=== PATIENT | male | born 1970 | race Caucasian/White ===

== ENCOUNTER 2018-08-21 13:46 | Inpatient (IN) | payer BC ==
--- NOTE | 2018-08-21 14:06 | PDOC ---
Attending Attestation - Resident Resident Name: Santos Griffith - HPI HPI: 08/21/18 15:56 Pt presents to the ED complaining of a 4 day history of fever, generalized myalgias and productive cough. Also complaining of nausea and vomiting that has since resolved. Presented today because he had a fever of 104 at home. Took tylenol immediately prior to arrival. - Physicial Exam PE: 08/21/18 15:59 Agree with resident exam. Patient is alert and oriented but appears uncomfortable. Lungs are clear b/l. Abdomen is soft, non tender and non distended. No CVA tenderness. Muccous membranes are dry. - Medical Decision Making 08/21/18 16:08 Pt presents to the ED with fever and myalgias. Found to be neutropenic with ANC of 200 on labs. Given his fevers at home, will start broad spectrum antibiotics and admit for neutropenic fever. Will place in isolation. Will admit to medicine for neutropenic fever. PAtient is positive for influenza A. Will start tamiflu given the severity of his illness. 08/21/18 16:08 08/21/18 16:10
--- NOTE | 2018-08-21 14:22 | PDOC ---
History of Present Illness - General Chief Complaint: Shortness of Breath Stated Complaint: FEVER,DIFF. BREATHNG Time Seen by Provider: 08/21/18 14:06 History Source: Patient, Spouse ( present at bedside) Exam Limitations: No Limitations - History of Present Illness Initial Comments: HPI: 47 y/o male presenting to [facility] ER complaining of fever, nausea, vomiting, diarrhea, cough, and generalized body aches. Pt states his symptoms started last week with a cough then progressed to fever, vomiting, and body aches last Tuesday (08/19/2018). Small episode of watery diarrhea this morning. Denies observing blood in either emesis or stool. Unable to tolerate PO; last meal on Tuesday. Cough has been productive of green sputum without color change. Pt denies SOB but reports observing fast and labored breathing. Pt refused to take any medication until two hours prior to arrival in the department when he took Tylenol cold and flu. Tmax this morning was 104 orally. Coworker had similar symptoms on Tuesday and two year old child has been coughing since last week with known sick contacts at daycare. Pt did not receive his flu shot this year. PCP: Dr. Leticia Stanley Hx: - Tobacco: none smoker Medical Hx: - Mitral Valve replacement with bovine valve, 2008 at [facility]. 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 Does not take anticoagulants. Past History - Past Medical History Allergies/Adverse Reactions: Allergies Allergy/AdvReac Type Severity Reaction Status Date / Time No Known Allergies Allergy Verified 08/21/18 13:52 Home Medications: Ambulatory Orders Topiramate 50 mg PO ASDIR 08/21/18 COPD: No - Surgical History Cardiac Surgery: Yes (mvp surgery 10 years ago) - Suicide/Smoking/Psychosocial Hx Smoking History: Never smoked Review of Systems - Review of Systems Able to Perform ROS?: Yes Comments:: In addition to that documented in the HPI above, the additional ROS was obtained : Constitutional: Endorses fevers and chills. Denies syncope. Eyes: Denies vision changes ENMT: Denies sore throat CV: Denies chest pain Resp: Denies SOB GI: Endorses vomiting and diarrhea : Denies painful urination MSK: Denies recent trauma Skin: Denies new rashes Neuro: Denies new numbness or tingling or weakness Endocrine: Denies polyuria Heme: Denies bleeding or bruising *Physical Exam - Vital Signs Last Vital Signs Temp Pulse Resp BP Pulse Ox 99.4 F 122 H 20 116/74 92 L 08/21/18 13:48 08/21/18 13:48 08/21/18 13:48 08/21/18 13:48 08/21/18 13:48 - Physical Exam Comments: Constitutional: Well-developed, well-nourished, nontoxic male in no acute distress but obvious discomfort. Found semi-fowlers on hospital bed. Alert and oriented x4. Answered all questions appropriately and completely. Speech was non -labored, non-pressured. Head: Normocephalic. No obvious external signs of trauma. Eyes: Sclerae white. Conjunctiva moist and not injected. EARS: Hearing grossly intact. NOSE: No nasal discharge. THROAT: Oral cavity and pharynx normal. No inflammation, swelling, exudate, or lesions. Teeth and gingiva in good general condition. Oral mucosa moist. Neck: Supple, trachea is midline. Cardiovascular: Tachycardic rate and regular rhythm. No murmur, rubs, clicks, or gallops. Peripheral pulses: Radial pulses full. Respiratory: Breathing unlabored but tachypneic at rest. Equal chest rise and fall. Clear to auscultation bilaterally. No stridor, no wheezing, no rhonchi. Gastrointestinal: abdomen is soft, non-tender, non-distended. Neuro: Alert and oriented. Moving all four extremities spontaneously. Skin: Warm, dry, and intact. No bruising, rashes, or other lesions. Psych: Affect: appropriate. Mood: normal. Moderate Sedation - Procedure Monitoring Vital Signs: Procedure Monitoring Vital Signs Temperature 99.4 F 08/21/18 13:48 Pulse Rate 122 H 08/21/18 13:48 Respiratory Rate 20 08/21/18 13:48 Blood Pressure 116/74 08/21/18 13:48 O2 Sat by Pulse Oximetry (%) 92 L 08/21/18 13:48 ED Treatment Course - LABORATORY CBC & Chemistry Diagram: 08/22/18 06:00 08/22/18 06:00 Medical Decision Making - Medical Decision Making *Reviewed vital signs, nursing notes, and prior visit documentation (if available). 47 y/o male presenting with flu like symptoms with known sick contacts. H/o mitral valve replacement. Afebrile on arrival but endorses antipyretic two hours prior to presenting. Triage vitals remarkable for tachycardia and mild hypoxia. Suspect likely viral/influenza infection over pneumonia but given high fever and vital sign abnormalities will obtain CXR, CBC, and CMP. Ordered ondansetron for nausea/vomiting and D5W IVFB given decreased PO intake. CBC revealed profound neutropenia. Pt denies h/o of cancer, chemotherapy, or HIV infection. Reports he is in a monogamous relationship with . 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 Pt verbally consented to HIV testing. Lab will send for Western Blot confirmatory test regardless of rapid Ag/Ab test given duration of time since incident. Additionally, ordered blood and urine cultures. Initiated Zosyn antibiotic therapy at pseudomonas dosing for broad spectrum coverage for neutropenic fever. No h/o of MRSA; will not start vancomycin. Initial lactate not elevated. Rapid influenza A positive. Started Oseltamivir given neutropenic status. CXR unremarkable for acute cardiopulmonary process per ED wet read. Radiology report pending. CMP revealed elevated BUN/Cr. Concern for NORTH secondary to dehydration given clinical course even though BCR is less than 20. Will add second IVFB then start pt on maintenance gtts. EKG: Sinus tachycardia with a ventricular rate of 106 bpm. Normal axis. Normal intervals. No ST segment elevation or depression. No hyperacute T waves. No pathologic Q waves. 16:07 Telephone page sent for [facility] physician covering for Dr. Kelly. Awaiting call back. 16:[address] Berry of [facility]. Verbally appraised of the pts HPI, ED course, and current plan of management. Agrees to admit for neutropenic fever and influenza A. HIV, blood culture, and urine cultures pending. Pt febrile. Ordered Tylenol. *DC/Admit/Observation/Transfer Diagnosis at time of Disposition: Neutropenic fever, Influenza A - Discharge Dispostion Condition at time of disposition: Stable Decision to Admit order: Yes - Referrals - Patient Instructions - Post Discharge Activity
[2018-08-21] MEDS ORDERED: DEXTROSE 5%-WATER 500 ML PVC-FREE INFUS.BAG IV ONE (14:23)
[2018-08-21] MEDS ORDERED: KETOROLAC TROMETHAMINE 30 MG/1 ML VIAL IVPUSH ONE (14:23)
[2018-08-21] MEDS ORDERED: KETOROLAC TROMETHAMINE 30 MG/1 ML VIAL ONE (14:30)
[2018-08-21] MEDS ORDERED: DEXTROSE 5%-WATER - 1,000 ML IV ONE (14:45)
[2018-08-21 15:02] LABS: BASO % 0.1 % (0-2.0); EOS % 0.1 % (0-4.5); HEMATOCRIT 45.9 % (35.4-49); HEMOGLOBIN 15.2 GM/dL (11.7-16.9); LYMPH % 55.2 % (8-40); MCH 29.8 pg (25.7-33.7); MCHC 33.1 g/dl (32.0-35.9); MEAN PLT VOLUME 9.5 fl (7.5-11.1); MONO % 32.6 % (3.8-10.2); PLATELET COUNT 120 K/MM3 (134-434); RDW 12.9 % (11.9-15.9)
[2018-08-21 15:09] LABS: WHITE BLOOD COUNT 1.7 K/mm3 (4.0-10.0)
[2018-08-21 15:29] LABS: ALBUMIN 3.6 g/dl (3.4-5.0); ALK PHOS 48 U/L (45-117); ANION GAP 9 MMOL/L (8-16); BILIRUBIN,TOTAL 0.8 mg/dL (0.2-1); BLOOD UREA NITROGEN 21 mg/dL (7-18); CALCIUM 8.3 mg/dL (8.5-10.1); CHLORIDE 106 mmol/L (98-107); CO2 22 mmol/L (21-32); CREATININE 1.4 mg/dL (0.55-1.3); GLUCOSE,RANDOM 118 mg/dL (74-106); POTASSIUM 3.9 mmol/L (3.5-5.1); SGOT/AST 27 U/L (15-37); SGPT/ALT 41 U/L (13-61); SODIUM 137 mmol/L (136-145); TOT PROT 7.2 g/dl (6.4-8.2)
[2018-08-21] MEDS ORDERED: PIPERACILLIN/TAZOB 4.5 GM 4.5 GM in DEXTROSE 5%-WATER 100 ML IVPB ONE (15:35)
[2018-08-21 15:55] LABS: VENOUS PC02 28.1 mmHg (38-52); VENOUS PH 7.47 (7.32-7.42); VENOUS PO2 56.4 mmHg (28-48)
[2018-08-21] MEDS ORDERED: PIPERACILLIN/TAZOB 4.5 GM 4.5 GM/100 ML BAG IVPB ONE (15:55)
[2018-08-21] MEDS ORDERED: OSELTAMIVIR PHOSPHATE 75 MG CAPSULE PO ONE (15:58)
[2018-08-21] MEDS ORDERED: OSELTAMIVIR PHOSPHATE 75 MG CAPSULE ONE (16:04)
[2018-08-21] MEDS ORDERED: SODIUM CHLORIDE 0.9% 500 ML INFUS.BAG IV ONE (16:22)
--- NOTE | 2018-08-21 16:29 | HP ---
CHIEF COMPLAINT: Fever and body aches PCP: Dr. Kelly HISTORY OF PRESENT ILLNESS: 47 year-old male with a PMH significant for migraines and tissue mitral valve replacement, presesnted to the ED today complaining of fever, nausea, vomiting, diarrhea, cough, and generalized body aches. Pt states his symptoms started last week with a cough then progressed to fever, vomiting, and body aches last Tuesday (08/19/2018). Small episode of watery diarrhea this morning. Unable to tolerate PO; last meal on Tuesday. Cough has been productive of green sputum. Tmax this morning was 104 orally at home. Coworker had similar symptoms. Did not receive his flu shot this year. ER course was notable for: (1) T100.5, p110 (2) Influenza A (+) Recent Travel: No PAST MEDICAL HISTORY: Migraines PAST SURGICAL HISTORY: Tissue mitral valve replacement Social History: Smoking: no Alcohol: no Drugs: no Family History: Allergies No Known Allergies Allergy (Verified 08/21/18 13:52) HOME MEDICATIONS: Home Medications Medication Instructions Recorded Topiramate 50 mg PO ASDIR 08/21/18 REVIEW OF SYSTEMS CONSTITUTIONAL: +fever, weakness, malaise, body aches, loss of appetite Absent: chills, diaphoresis, weight change HEENT: Absent: rhinorrhea, nasal congestion, throat pain, throat swelling, difficulty swallowing, mouth swelling, ear pain, eye pain, visual changes CARDIOVASCULAR: Absent: chest pain, syncope, palpitations, irregular heart rate, lightheadedness , peripheral edema RESPIRATORY: Absent: cough, shortness of breath, dyspnea with exertion, orthopnea, wheezing, stridor, hemoptysis GASTROINTESTINAL: Absent: abdominal pain, abdominal distension, nausea, vomiting, diarrhea, constipation, melena, hematochezia GENITOURINARY: Absent: dysuria, frequency, urgency, hesitancy, hematuria, flank pain, genital pain MUSCULOSKELETAL: Absent: myalgia, arthralgia, joint swelling, back pain, neck pain SKIN: Absent: rash, itching, pallor HEMATOLOGIC/IMMUNOLOGIC: Absent: easy bleeding, easy bruising, lymphadenopathy, frequent infections ENDOCRINE: Absent: unexplained weight gain, unexplained weight loss, heat intolerance, cold intolerance NEUROLOGIC: Absent: headache, focal weakness or paresthesias, dizziness, unsteady gait, seizure, mental status changes, bladder or bowel incontinence PSYCHIATRIC: Absent: anxiety, depression, suicidal or homicidal ideation, hallucinations. PHYSICAL EXAMINATION Vital Signs - 24 hr 08/21/18 08/21/18 08/21/18 13:48 15:14 16:28 Temperature 99.4 F 100.5 F H Pulse Rate 122 H Pulse Rate [ 110 H Apical] Respiratory 20 20 Rate Blood Pressure 116/74 Blood Pressure 105/77 [Left Arm] O2 Sat by Pulse 92 L 94 L Oximetry (%) GENERAL: A&O x 3; lethargic; ill-appearing HEAD: Normal with no signs of trauma. EYES: Pupils equal, round and reactive to light, sclera anicteric, conjunctiva clear. No lid lag. EARS, NOSE, THROAT: Dry mucous membranes. LUNGS: Breath sounds equal, clear to auscultation bilaterally. No wheezes, and no crackles. No accessory muscle use. HEART: Regular rate and rhythm, normal S1 and S2 ABDOMEN: Soft, nontender, not distended, normoactive bowel sounds, no guarding, no rebound UPPER EXTREMITIES: 2+ pulses, warm, well-perfused. No cyanosis. No clubbing. No peripheral edema. LOWER EXTREMITIES: 2+ pulses, warm, well-perfused. No calf tenderness. No peripheral edema. NEUROLOGICAL: Cranial nerves II-XII intact. Normal speech. SKIN: Warm, dry, normal turgor Laboratory Results - last 24 hr 08/21/18 08/21/18 08/21/18 14:40 14:40 15:13 WBC 1.7 L* RBC 5.10 Hgb 15.2 Hct 45.9 MCV 90.0 MCH 29.8 MCHC 33.1 RDW 12.9 Plt Count 120 L MPV 9.5 Absolute Neuts (auto) 0.2 L Neutrophils % 12.0 L Lymphocytes % 55.2 H Monocytes % 32.6 H Eosinophils % 0.1 Basophils % 0.1 Nucleated RBC % 0 VBG pH POC VBG pCO2 POC VBG pO2 Mixed VBG HCO3 Sodium 137 Potassium 3.9 Chloride 106 Carbon Dioxide 22 Anion Gap 9 BUN 21 H Creatinine 1.4 H Creat Clearance w eGFR 54.80 Random Glucose 118 H Lactic Acid Calcium 8.3 L Total Bilirubin 0.8 AST 27 ALT 41 Alkaline Phosphatase 48 Total Protein 7.2 Albumin 3.6 Influenza A (Rapid) Positive Influenza B (Rapid) Negative 08/21/18 08/21/18 15:45 15:48 WBC RBC Hgb Hct MCV MCH MCHC RDW Plt Count MPV Absolute Neuts (auto) Neutrophils % Lymphocytes % Monocytes % Eosinophils % Basophils % Nucleated RBC % VBG pH 7.47 H POC VBG pCO2 28.1 L POC VBG pO2 56.4 H Mixed VBG HCO3 19.9 Sodium Potassium Chloride Carbon Dioxide Anion Gap BUN Creatinine Creat Clearance w eGFR Random Glucose Lactic Acid 1.2 Calcium Total Bilirubin AST ALT Alkaline Phosphatase Total Protein Albumin Influenza A (Rapid) Influenza B (Rapid) ASSESSMENT/PLAN: 47 year-old male with a PMH significant for mitral valve repair. Admitted for Influenza A and fever. Influenza A Fever --positive Influenza A --neutropenia likely seconary to influenza --empiric Vanc and Zosyn started, ID consult requested --IV fluids --Tamiflu s/p tissue mitral valve repair --stable Migraines --continue topiromate FEN Fluids: NS@125mL/hr Electrolytes: repete as indicated Nutrition: regular diet DVT prophylaxis: Dispo: continues to require inpatient care. Full code. Visit type - Emergency Visit Emergency Visit: Yes ED Registration Date: 08/21/18 Care time: The patient presented to the Emergency Department on the above date and was hospitalized for further evaluation of their emergent condition. - New Patient This patient is new to me today: Yes Date on this admission: 08/21/18 - Critical Care Critical Care patient: No
[2018-08-21] MEDS ORDERED: PATIENT'S OWN MEDICATION (NON-FORMULARY) (Topiramate [Topiramate] 50 MG) PO SCH (16:30)
[2018-08-21] MEDS ORDERED: ACETAMINOPHEN 325 MG TABLET (FP) PO PRN (16:31)
[2018-08-21] MEDS ORDERED: ACETAMINOPHEN 1000 MG/100 ML VIAL (NON FORMULARY) IVPB ONE (17:01)
[2018-08-21] MEDS ORDERED: ACETAMINOPHEN INJECTION 100 ML IVPB ONE (17:08)
[2018-08-21] MEDS: SODIUM CHLORIDE 1,000 ML IV SCH (17:16)
[2018-08-21] MEDS ORDERED: MINERAL OIL ENEMA 133 ML ENEMA PR ONE (17:17)
[2018-08-21] MEDS ORDERED: VANCOMYCIN 1 GM PREMIX - 1 GM/200 ML BAG IVPB ONE (17:21)
[2018-08-21 17:35] LABS: URINE APPEARANCE CLOUDY; URINE BILIRUBIN NEGATIVE (<2.0 mg/dL); URINE COLOR YELLOW; URINE GLUCOSE (UA) 2+ (NEGATIVE); URINE KETONE TRACE (NEGATIVE); URINE LEUK ESTERASE NEGATIVE (NEGATIVE); URINE NITRITE NEGATIVE (NEGATIVE); URINE PROTEIN 2+ (NEGATIVE); URINE UROBILINOGEN NEGATIVE mg/dL (0.2-1.0)
[2018-08-21 17:53] LABS: EPI CELLS RARE /HPF (FEW); URINE MUCUS RARE
[2018-08-21] MEDS ORDERED: VANCOMYCIN 1 GRAM (PRE-DOCKED) 1,000 MG/250 ML BAG IVPB ONE (18:31)
[2018-08-21 20:46] LABS: SMUDGE CELLS FEW
[2018-08-21 20:47] LABS: PLATELET ESTIMATE SLT DECREASE
[2018-08-21 23:02] VITALS: BMI 24.5
[2018-08-21] MEDS: OSELTAMIVIR PHOSPHATE 75 MG CAPSULE PO SCH (23:17)
[2018-08-22] MEDS ORDERED: PIPERACILLIN/TAZOBACTAM 3.375 GM VIAL IVPB ONE ×2 (01:08→09:04)
[2018-08-22] MEDS ORDERED: DEXTROSE 5%-WATER - 50 ML IVPB ONE ×2 (01:09→09:04)
[2018-08-22] MEDS: PIPERACILLIN/TAZOB 3.375 GM 3.375 GM in DEXTROSE 5%-WATER - 50 ML IVPB SCH ×3 (02:06→17:12)
[2018-08-22 06:12] LABS: BASO % 0.2 % (0-2.0); HEMATOCRIT 40.5 % (35.4-49); HEMOGLOBIN 13.4 GM/dL (11.7-16.9); LYMPH % 35.7 % (8-40); MCH 29.6 pg (25.7-33.7); MCHC 32.9 g/dl (32.0-35.9); MEAN CELL VOLUME 89.7 fl (80-96); MEAN PLT VOLUME 9.4 fl (7.5-11.1); MONO % 11.1 % (3.8-10.2); PLATELET COUNT 100 K/MM3 (134-434); RBC 4.52 M/mm3 (4.00-5.60); RDW 12.9 % (11.9-15.9); WHITE BLOOD COUNT 2.1 K/mm3 (4.0-10.0)
[2018-08-22 07:24] LABS: ALBUMIN 2.7 g/dl (3.4-5.0); ALK PHOS 30 U/L (45-117); ANION GAP 10 MMOL/L (8-16); BILIRUBIN,TOTAL 1.1 mg/dL (0.2-1); BLOOD UREA NITROGEN 15 mg/dL (7-18); CHLORIDE 109 mmol/L (98-107); CO2 19 mmol/L (21-32); CREATININE 1.1 mg/dL (0.55-1.3); GLUCOSE,RANDOM 129 mg/dL (74-106); MAGNESIUM 1.6 mg/dL (1.8-2.4); POTASSIUM 3.4 mmol/L (3.5-5.1); SGOT/AST 19 U/L (15-37); SGPT/ALT 28 U/L (13-61); SODIUM 138 mmol/L (136-145); TOT PROT 5.5 g/dl (6.4-8.2)
[2018-08-22] MEDS ORDERED: PT OWN MED DRAWER 7, Y5N ONE ×2 (09:03→20:43)
[2018-08-22] MEDS: OSELTAMIVIR PHOSPHATE 75 MG CAPSULE PO SCH ×2 (09:34→21:26)
[2018-08-22] MEDS: ENOXAPARIN NA (PORCINE) 40 MG/0.4 ML DISP.SYRIN SQ SCH (09:34)
--- NOTE | 2018-08-22 10:14 | PN ---
Physical Exam: SUBJECTIVE: Patient seen and examined OBJECTIVE: Vital Signs Period Temp Pulse Resp BP Sys/Josue Pulse Ox Last 24 Hr 97.9 F-100.5 F 62-122 18-20 105-131/70-77 92-98 GENERAL: A&O x 3; more alert but still ill-appearing LUNGS: Breath sounds equal, clear to auscultation bilaterally. No wheezes, and no crackles. No accessory muscle use. HEART: Regular rate and rhythm, S1 and S2 ABDOMEN: Soft, nontender, not distended, normoactive bowel sounds, no guarding, no rebound UPPER EXTREMITIES: 2+ pulses, warm, well-perfused. No cyanosis. No clubbing. No peripheral edema. LOWER EXTREMITIES: 2+ pulses, warm, well-perfused. No calf tenderness. No peripheral edema. NEUROLOGICAL: Cranial nerves II-XII intact. Normal speech. SKIN: Warm, dry, normal turgor Laboratory Results - last 24 hr 08/21/18 08/21/18 08/21/18 14:40 14:40 15:13 WBC 1.7 L* RBC 5.10 Hgb 15.2 Hct 45.9 MCV 90.0 MCH 29.8 MCHC 33.1 RDW 12.9 Plt Count 120 L MPV 9.5 Absolute Neuts (auto) 0.2 L Neutrophils % 12.0 L Neutrophils % (Manual) 10.0 L Lymphocytes % 55.2 H Lymphocytes % (Manual) 50.0 H Monocytes % 32.6 H Monocytes % (Manual) 26 H Eosinophils % 0.1 Basophils % 0.1 Nucleated RBC % 0 Smudge Cells Few Platelet Estimate Slt decrease Platelet Comment No clumping noted VBG pH POC VBG pCO2 POC VBG pO2 Mixed VBG HCO3 Sodium 137 Potassium 3.9 Chloride 106 Carbon Dioxide 22 Anion Gap 9 BUN 21 H Creatinine 1.4 H Creat Clearance w eGFR 54.80 Random Glucose 118 H Lactic Acid Calcium 8.3 L Magnesium Total Bilirubin 0.8 AST 27 ALT 41 Alkaline Phosphatase 48 Total Protein 7.2 Albumin 3.6 Urine Color Urine Appearance Urine pH Ur Specific [place] Urine Protein Urine Glucose (UA) Urine Ketones Urine Blood Urine Nitrite Urine Bilirubin Urine Urobilinogen Ur Leukocyte Esterase Urine WBC (Auto) Urine RBC (Auto) Ur Epithelial Cells Urine Mucus HIV 1&2 Antibody Screen HIV P24 Antigen Influenza A (Rapid) Positive Influenza B (Rapid) Negative 08/21/18 08/21/18 08/21/18 15:45 15:48 15:52 WBC RBC Hgb Hct MCV MCH MCHC RDW Plt Count MPV Absolute Neuts (auto) Neutrophils % Neutrophils % (Manual) Lymphocytes % Lymphocytes % (Manual) Monocytes % Monocytes % (Manual) Eosinophils % Basophils % Nucleated RBC % Smudge Cells Platelet Estimate Platelet Comment VBG pH 7.47 H POC VBG pCO2 28.1 L POC VBG pO2 56.4 H Mixed VBG HCO3 19.9 Sodium Potassium Chloride Carbon Dioxide Anion Gap BUN Creatinine Creat Clearance w eGFR Random Glucose Lactic Acid 1.2 Calcium Magnesium Total Bilirubin AST ALT Alkaline Phosphatase Total Protein Albumin Urine Color Urine Appearance Urine pH Ur Specific [place] Urine Protein Urine Glucose (UA) Urine Ketones Urine Blood Urine Nitrite Urine Bilirubin Urine Urobilinogen Ur Leukocyte Esterase Urine WBC (Auto) Urine RBC (Auto) Ur Epithelial Cells Urine Mucus HIV 1&2 Antibody Screen Negative HIV P24 Antigen Negative Influenza A (Rapid) Influenza B (Rapid) 08/21/18 08/22/18 08/22/18 17:30 06:00 06:00 WBC 2.1 L RBC 4.52 Hgb 13.4 Hct 40.5 MCV 89.7 MCH 29.6 MCHC 32.9 RDW 12.9 Plt Count 100 L MPV 9.4 Absolute Neuts (auto) 1.1 L Neutrophils % 53.0 D Neutrophils % (Manual) Lymphocytes % 35.7 D Lymphocytes % (Manual) Monocytes % 11.1 H Monocytes % (Manual) Eosinophils % 0.0 D Basophils % 0.2 Nucleated RBC % 0 Smudge Cells Platelet Estimate Platelet Comment VBG pH POC VBG pCO2 POC VBG pO2 Mixed VBG HCO3 Sodium 138 Potassium 3.4 L Chloride 109 H Carbon Dioxide 19 L Anion Gap 10 BUN 15 Creatinine 1.1 Creat Clearance w eGFR > 60 Random Glucose 129 H Lactic Acid Calcium 7.0 L Magnesium 1.6 L Total Bilirubin 1.1 H AST 19 ALT 28 Alkaline Phosphatase 30 L Total Protein 5.5 L Albumin 2.7 L Urine Color Yellow Urine Appearance Cloudy Urine pH 5.0 Ur Specific [place] 1.032 Urine Protein 2+ H Urine Glucose (UA) 2+ H Urine Ketones Trace H Urine Blood Negative Urine Nitrite Negative Urine Bilirubin Negative Urine Urobilinogen Negative Ur Leukocyte Esterase Negative Urine WBC (Auto) 2 Urine RBC (Auto) <1 Ur Epithelial Cells Rare Urine Mucus Rare HIV 1&2 Antibody Screen HIV P24 Antigen Influenza A (Rapid) Influenza B (Rapid) Active Medications Generic Name Dose Route Start Last Admin Trade Name Padmini PRN Reason Stop Dose Admin Acetaminophen 650 mg 08/21/18 16:31 Tylenol - PO Q6H PRN FEVER Enoxaparin Sodium 40 mg 08/22/18 10:00 08/22/18 09:34 Lovenox - SQ 40 mg DAILY EDVIN Administration Sodium Chloride 1,000 mls @ 125 mls/hr 08/21/18 16:30 08/21/18 17:16 Normal Saline - IV 125 mls/hr ASDIR EDVIN Administration Piperacillin Sod/Tazobactam 50 mls @ 100 mls/hr 08/21/18 18:00 Sod 3.375 gm/ Dextrose IVPB Q8H-IV EDVIN Protocol Piperacillin Sod/Tazobactam 50 mls @ 100 mls/hr 08/22/18 02:00 08/22/18 09:34 Sod 3.375 gm/ Dextrose IVPB 08/22/18 10:29 100 mls/hr Q8H-IV EDVIN Administration Magnesium Sulfate 2 gm 08/22/18 10:11 Magnesium Sulfate IVPB 08/22/18 10:12 ONCE ONE Oseltamivir Phosphate 75 mg 08/21/18 22:00 08/22/18 09:34 Tamiflu - PO 08/26/18 21:59 75 mg BID EDVIN Administration Potassium Chloride 40 meq 08/22/18 11:30 K-Dur - PO 08/22/18 17:31 Q6H EDVIN Topiramate 50 mg 08/22/18 10:00 Topamax - PO DAILY EDVIN ASSESSMENT/PLAN: 47 year-old male with a PMH significant for mitral valve repair. Admitted for Influenza A and fever. Influenza A and fever in setting of prosthetic mitral valve --positive Influenza A --afebrile 24 hours, WBC 2.1k --neutropenia likely seconary to influenza --per ID, treat empirically with Vanc and cefepime because of prosthetic valve --Tamiflu x 5 day course --not tolerating food-->nausea, diarrhea-->NPO for now Migraines --continue topiromate Hypomagnesemia --repleted Hypokalemia --repleted FEN Fluids: NS@125mL/hr Electrolytes: repete as indicated Nutrition: NPO DVT prophylaxis: subq lovenox Dispo: continues to require inpatient care. Full code. Visit type - Emergency Visit Emergency Visit: Yes ED Registration Date: 08/21/18 Care time: The patient presented to the Emergency Department on the above date and was hospitalized for further evaluation of their emergent condition. - New Patient This patient is new to me today: No - Critical Care Critical Care patient: No
[2018-08-22] MEDS ORDERED: MAGNESIUM SULF 50% (8.12 MEQ/2 ML-1 GM VIAL) IVPB ONE (10:30)
[2018-08-22] MEDS: TOPIRAMATE 25 MG TABLET (FP) PO SCH (10:35)
[2018-08-22] MEDS: ONDANSETRON 4 MG/2 ML VIAL IVPUSH PRN ×3 (11:43→20:48)
[2018-08-22] MEDS: POTASSIUM CHLORIDE TABS 20 MEQ TABLET.ER (FP) PO SCH ×2 (11:44→17:23)
--- NOTE | 2018-08-22 12:49 | PN ---
Progress Note (short form) - Note Progress Note: ID Consult dictated Acute influenza A Febrile neutropenia S/P MVR 2009 Continue Tamiflu In light of prosthetic valve will empirically cover for febrile neutropenia with vancomycin/ cefepime
--- NOTE | 2018-08-22 13:28 | CONS ---
DATE OF CONSULTATION: DATE OF DICTATION: 08/22/2018 The patient is a 47-year-old male, status post mitral valve replacement in 2008, evaluated for febrile neutropenia and acute influenza. The patient reports a 4-day history of fever, myalgias, arthralgias, productive cough, nausea, vomiting, and diarrhea. His temperature reached as high as 104, prompting him to come to the emergency room. He was found to have a positive rapid test for influenza A. The patient was started on Tamiflu. His course was complicated by fever, leukopenia, neutropenia, and thrombocytopenia. He was empirically treated with antibiotics after cultures were obtained. Patient reports that a co-worker had flu-like illness as well as his child at home. He did not receive influenza vaccine this year. Patient has a history of mitral valve replacement in 2008. Denies a history of prosthetic valve endocarditis. No recent dental work. Patient recently sustained a needle stick injury while doing a tattoo on a client. PAST MEDICAL HISTORY: As above. No known allergies. Medications include topiramate. 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 He lives at home with his . He is monogamous. Nonsmoker, nondrinker. No history of illicit drug use. HIV test negative. SYSTEMS REVIEW: Neurologic: No loss of consciousness, seizure activity, or focal weakness. Cardiac: Negative chest pain or palpitations. Respiratory: As per HPI. Gastrointestinal: Positive for nausea, vomiting and diarrhea. Genitourinary: Negative for urinary tract infection. LABORATORY DATA: White count on admission 1.7 with an absolute neutrophil count of 200; presently 2.1 with an absolute neutrophil count of 1100. Hematocrit 40.5, platelet count 100, lactic acid 1.2, BUN 15, creatinine 1.1. Urinalysis: 2 white cells. HIV test negative. Blood cultures are pending. PHYSICAL EXAMINATION: General: He is awake and alert. He is in moderate distress secondary to body ache and cough. Vital Signs: Temperature 100.5. Blood pressure 131/71. Pulse 104, regular. Respiration 20 per minute. ENT: Sclerae anicteric. Oropharynx with no injection or exudate. Neck: Supple. No palpable nodes. Heart Sounds: S1, S2. Lungs: Clear bilaterally. No rhonchi, rales, or wheezing. Abdomen: Soft. No tenderness elicited. No mass, rebound or rigidity. Extremities: Negative for edema. IMPRESSION: 1. Acute influenza A. 2. Febrile neutropenia. 3. Status post mitral valve replacement in 2008. 4. History of recent needle stick injury. Continue Tamiflu and flu isolation. In light of prosthetic valve, will empirically cover for febrile neutropenia with vancomycin and cefepime. Leukopenia, neutropenia, thrombocytopenia almost certainly from acute influenza and should recover on treatment for the flu. Check CBC tomorrow. If neutropenia resolves and cultures negative, will stop antibiotics, complete 5 days of Tamiflu. Thank you for the kind referral. GRECIA LUZ M.D. [id number]
[2018-08-22] MEDS: VANCOMYCIN 1 GRAM (PRE-DOCKED) 1,000 MG/250 ML BAG IVPB SCH (14:32)
[2018-08-22] MEDS: SODIUM CHLORIDE 1,000 ML IV SCH (17:23)
[2018-08-22] MEDS: diphenhydrAMINE HCL 25 MG CAPSULE (FP) PO PRN (21:26)
[2018-08-23] MEDS: VANCOMYCIN 1 GRAM (PRE-DOCKED) 1,000 MG/250 ML BAG IVPB SCH ×2 (00:52→13:59)
--- NOTE | 2018-08-23 08:30 | PN ---
Progress Note, Physician Chief Complaint: Pt admitted on 08/21 with influenza A infection History of Present Illness: - pt continued on vanco and cefipime. Blood culture NGTD. As per ID, abx can be d/enid on 08/23 if cultures are benign -AM CBC pending to evaluate WBC and ANC counts. -oral intake has improved, IVF d/enid at 7:30pm pt reports small hemoptysis, and mild dyspnea. CXR with new infiltrative processes at the bases. - Current Medication List Current Medications: Active Medications Acetaminophen (Tylenol -) 650 mg PO Q6H PRN PRN Reason: FEVER Diphenhydramine HCl (Benadryl -) 25 mg PO HS PRN PRN Reason: INSOMNIA Last Admin: 08/22/18 21:26 Dose: 25 mg Enoxaparin Sodium (Lovenox -) 40 mg SQ DAILY [facility] Last Admin: 08/22/18 09:34 Dose: 40 mg Sodium Chloride (Normal Saline -) 1,000 mls @ 125 mls/hr IV ASDIR [facility] Last Admin: 08/22/18 17:23 Dose: Not Given Vancomycin HCl (Vancomycin (Pre-Docked)) 1,000 mg in 250 mls @ 166.667 mls/hr IVPB Q12H [facility]; Protocol Last Admin: 08/23/18 00:52 Dose: 166.667 mls/hr Ondansetron HCl (Zofran Injection) 4 mg IVPUSH Q4H PRN PRN Reason: NAUSEA AND/OR VOMITING Last Admin: 08/22/18 20:48 Dose: 4 mg Oseltamivir Phosphate (Tamiflu -) 75 mg PO BID [facility] Stop: 08/26/18 21:59 Last Admin: 08/22/18 21:26 Dose: 75 mg Topiramate (Topamax -) 50 mg PO DAILY [facility] Last Admin: 08/22/18 10:35 Dose: 50 mg - Objective Vital Signs: Vital Signs Temperature 98.4 F 08/23/18 04:50 Pulse Rate 86 08/23/18 04:50 Respiratory Rate 20 08/23/18 04:50 Blood Pressure 128/83 08/23/18 04:50 O2 Sat by Pulse Oximetry (%) 94 L 08/22/18 21:00 Constitutional: Yes: Calm Eyes: Yes: Conjunctiva Clear HENT: Yes: Atraumatic, Normocephalic Neck: Yes: Supple, Trachea Midline Cardiovascular: Yes: Regular Rate and Rhythm Respiratory: Yes: Regular, Cough, Other (decreased at the bases) Gastrointestinal: Yes: Soft, Hypoactive Bowel Sounds ...Rectal Exam: Yes: Deferred Musculoskeletal: Yes: Muscle Weakness Extremities: Yes: WNL Edema: No Peripheral Pulses WNL: Yes Peripheral Pulses: Left Radial: 2+, Right Radial: 2+, Left Doralis Pedis: 2+, Right Dorsalis Pedis: 2+ Integumentary: Yes: WNL Neurological: Yes: Alert, Oriented ...Motor Strength: WNL Psychiatric: Yes: Alert, Oriented Labs: CBC, BMP 08/22/18 06:00 08/22/18 06:00 - ....Imaging Chest X-ray: Report Reviewed (CXR with new infiltrative processes at the bases since 08/21/18) Problem List - Problems (1) Insomnia Assessment/Plan: benadryl 25mg qhs sleep hhygeine measure discussed Code(s): G47.00 - INSOMNIA, UNSPECIFIED (2) Prophylactic measure Assessment/Plan: Lovenox 40mg SC daily OOB to chair Ambulate as tolerated Incentive spirometry Code(s): Z29.9 - ENCOUNTER FOR PROPHYLACTIC MEASURES, UNSPECIFIED (3) Influenza A Assessment/Plan: tamiflu 5dy course oral hydration encouraged serial CBC, if WBC and ANC improving, pt can be discharged with outpt follow up pt now tolerating oral intake, d/c IV fluids start nebs for mild dyspnea Code(s): J10.1 - FLU DUE TO OTH IDENT INFLUENZA VIRUS W OTH RESP MANIFEST (4) Neutropenic fever Assessment/Plan: APAP PRN temp > 101.0 trend WBC and ANC for recovery Code(s): D70.9 - NEUTROPENIA, UNSPECIFIED; R50.81 - FEVER PRESENTING WITH CONDITIONS CLASSIFIED ELSEWHERE Impression/Plan Impression/Plan: DISPO: Full code Visit type - Emergency Visit Emergency Visit: Yes ED Registration Date: 08/21/18 Care time: The patient presented to the Emergency Department on the above date and was hospitalized for further evaluation of their emergent condition. - New Patient This patient is new to me today: Yes Date on this admission: 08/23/18 - Critical Care Critical Care patient: No - Discharge Referral Referred to [facility] Med P.C.: No
[2018-08-23 08:56] LABS: BASO % 0.2 % (0-2.0); HEMATOCRIT 37.3 % (35.4-49); HEMOGLOBIN 13.1 GM/dL (11.7-16.9); LYMPH % 19.6 % (8-40); MCH 31.4 pg (25.7-33.7); MCHC 35.2 g/dl (32.0-35.9); MEAN CELL VOLUME 89.2 fl (80-96); MEAN PLT VOLUME 9.2 fl (7.5-11.1); MONO % 11.4 % (3.8-10.2); NEUT % 68.8 % (42.8-82.8); PLATELET COUNT 123 K/MM3 (134-434); RBC 4.18 M/mm3 (4.00-5.60); RDW 13.3 % (11.9-15.9); WHITE BLOOD COUNT 4.8 K/mm3 (4.0-10.0)
[2018-08-23 09:35] LABS: ALBUMIN 2.3 g/dl (3.4-5.0); ALK PHOS 32 U/L (45-117); ANION GAP 6 MMOL/L (8-16); BILIRUBIN,TOTAL 0.6 mg/dL (0.2-1); BLOOD UREA NITROGEN 16 mg/dL (7-18); CHLORIDE 114 mmol/L (98-107); CO2 21 mmol/L (21-32); CREATININE 0.9 mg/dL (0.55-1.3); GLUCOSE,RANDOM 104 mg/dL (74-106); MAGNESIUM 2.4 mg/dL (1.8-2.4); POTASSIUM 4.2 mmol/L (3.5-5.1); SGOT/AST 21 U/L (15-37); SGPT/ALT 24 U/L (13-61); SODIUM 141 mmol/L (136-145); TOT PROT 5.2 g/dl (6.4-8.2)
[2018-08-23 09:47] LABS: CALCIUM 6.8 mg/dL (8.5-10.1)
[2018-08-23] MEDS ORDERED: PT OWN MED DRAWER 7, Y5N ONE (10:02)
[2018-08-23] MEDS: TOPIRAMATE 25 MG TABLET (FP) PO SCH (10:22)
[2018-08-23] MEDS: ENOXAPARIN NA (PORCINE) 40 MG/0.4 ML DISP.SYRIN SQ SCH (10:22)
[2018-08-23] MEDS: OSELTAMIVIR PHOSPHATE 75 MG CAPSULE PO SCH ×2 (10:23→21:39)
--- NOTE | 2018-08-23 11:27 | PN ---
Progress Note, Physician History of Present Illness: Feeling better Less arthralgias/ myalgias Temps down Afebrile WBC improved 4.8 ANC 3.3 BC (-) - Current Medication List Current Medications: Active Medications Acetaminophen (Tylenol -) 650 mg PO Q6H PRN PRN Reason: FEVER Calcium Gluconate (Calcium Gluconate 10% -) 1,000 mg IVPB ONCE ONE Stop: 08/23/18 11:31 Calcium Gluconate (Calcium Gluconate 10% -) 1,000 mg IVPB ONCE ONE Stop: 08/23/18 13:01 Diphenhydramine HCl (Benadryl -) 25 mg PO HS PRN PRN Reason: INSOMNIA Last Admin: 08/22/18 21:26 Dose: 25 mg Enoxaparin Sodium (Lovenox -) 40 mg SQ DAILY [facility] Last Admin: 08/23/18 10:22 Dose: 40 mg Sodium Chloride (Normal Saline -) 1,000 mls @ 125 mls/hr IV ASDIR [facility] Last Admin: 08/22/18 17:23 Dose: Not Given Vancomycin HCl (Vancomycin (Pre-Docked)) 1,000 mg in 250 mls @ 166.667 mls/hr IVPB Q12H [facility]; Protocol Last Admin: 08/23/18 00:52 Dose: 166.667 mls/hr Ondansetron HCl (Zofran Injection) 4 mg IVPUSH Q4H PRN PRN Reason: NAUSEA AND/OR VOMITING Last Admin: 08/22/18 20:48 Dose: 4 mg Oseltamivir Phosphate (Tamiflu -) 75 mg PO BID [facility] Stop: 08/26/18 21:59 Last Admin: 08/23/18 10:23 Dose: 75 mg Topiramate (Topamax -) 50 mg PO DAILY [facility] Last Admin: 08/23/18 10:22 Dose: 50 mg - Objective Vital Signs: Vital Signs Temperature 98.4 F 08/23/18 04:50 Pulse Rate 86 08/23/18 04:50 Respiratory Rate 20 08/23/18 04:50 Blood Pressure 128/83 08/23/18 04:50 O2 Sat by Pulse Oximetry (%) 94 L 08/22/18 21:00 Constitutional: Yes: No Distress Eyes: Yes: Conjunctiva Clear Cardiovascular: Yes: Regular Rate and Rhythm, S1, S2 Respiratory: Yes: CTA Bilaterally Gastrointestinal: Yes: Normal Bowel Sounds, Soft. No: Tenderness Edema: No Labs: CBC, BMP 08/23/18 08:46 08/23/18 08:46 Assessment/Plan Acute influenza A Leukopenia/ neutropenia improved S/P MVR If BC negative at 48hr, D/C antibiotics and observe off No objection to D/C later today to complete 5d course Tamiflu
[2018-08-23] MEDS ORDERED: CALCIUM GLUCONATE 10% - 1,000 MG/10 ML VIAL IVPB ONE ×2 (11:30→13:30)
--- NOTE | 2018-08-23 19:08 | EKG ---
Test Reason : Blood Pressure : / mmHG Vent. Rate : 106 BPM Atrial Rate : 106 BPM P-R Int : 204 ms QRS Dur : 114 ms QT Int : 360 ms P-R-T Axes : 057 050 042 degrees QTc Int : 478 ms SINUS TACHYCARDIA POSSIBLE LEFT ATRIAL ENLARGEMENT INCOMPLETE RIGHT BUNDLE BRANCH BLOCK BORDERLINE ECG NO PREVIOUS ECGS AVAILABLE Confirmed by FRANKIE MICHAEL MD ([id number]) on 08/23/2018 7:07:57 PM Referred By: Confirmed By:FRANKIE MICHAEL MD
[2018-08-23] MEDS: ALBUTEROL SO4 2.5/IPRATROPIUM 0.5 INH SOL 3 ML VIAL.NEB. NEB SCH (20:24)
[2018-08-23] MEDS: SODIUM CHLORIDE 1,000 ML IV SCH (21:34)
[2018-08-23] MEDS: diphenhydrAMINE HCL 25 MG CAPSULE (FP) PO PRN (21:39)
[2018-08-24] MEDS: VANCOMYCIN 1 GRAM (PRE-DOCKED) 1,000 MG/250 ML BAG IVPB SCH (02:40)
[2018-08-24 07:29] LABS: HEMATOCRIT 39.3 % (35.4-49); HEMOGLOBIN 12.8 GM/dL (11.7-16.9); MCH 29.3 pg (25.7-33.7); MCHC 32.5 g/dl (32.0-35.9); MEAN PLT VOLUME 9.7 fl (7.5-11.1); PLATELET COUNT 144 K/MM3 (134-434); RBC 4.37 M/mm3 (4.00-5.60); RDW 12.8 % (11.9-15.9); WHITE BLOOD COUNT 4.9 K/mm3 (4.0-10.0)
[2018-08-24] MEDS: ALBUTEROL SO4 2.5/IPRATROPIUM 0.5 INH SOL 3 ML VIAL.NEB. NEB SCH ×3 (07:30→17:13)
--- NOTE | 2018-08-24 08:29 | PN ---
Physical Exam: SUBJECTIVE: Patient seen and examined. Feels better this am. Has pinkish colored sputum today, better from bright red yesterday. No BM this am. No abdominal pain, but still on clears. OBJECTIVE: Vital Signs Period Temp Pulse Resp BP Sys/Josue Pulse Ox Last 24 Hr 98.1 F-98.6 F 71-82 18-20 109-126/69-80 97-98 Vital Signs Temperature 98.4 F 08/24/18 11:13 Pulse Rate 76 08/24/18 11:13 Respiratory Rate 20 08/24/18 11:13 Blood Pressure 120/78 08/24/18 11:13 O2 Sat by Pulse Oximetry (%) 97 08/23/18 21:00 GENERAL: The patient is awake, alert, and fully oriented, in no acute distress. ENT: moist mucous membranes. NECK: full range of motion, supple. LUNGS: Breath sounds equal, b/l basal crackles, no accessory muscle use. HEART: Regular rate and rhythm, S1, S2 ABDOMEN: Soft, nontender, nondistended, normoactive bowel sounds EXTREMITIES: 2+ pulses, warm, well-perfused, no edema. NEUROLOGICAL: Cranial nerves II through XII grossly intact. Normal speech, gait not observed. PSYCH: Normal mood, normal affect. CBC, BMP 08/24/18 06:30 08/23/18 08:46 Laboratory Results - last 24 hr 08/23/18 08/23/18 08/24/18 08:46 08:46 06:30 WBC 4.8 4.9 RBC 4.18 4.37 Hgb 13.1 12.8 Hct 37.3 39.3 MCV 89.2 90.0 MCH 31.4 29.3 MCHC 35.2 32.5 RDW 13.3 12.8 Plt Count 123 L D 144 MPV 9.2 9.7 Absolute Neuts (auto) 3.3 Neutrophils % 68.8 D Lymphocytes % 19.6 D Monocytes % 11.4 H Eosinophils % 0.0 Basophils % 0.2 Nucleated RBC % 0 Sodium 141 Potassium 4.2 Chloride 114 H Carbon Dioxide 21 Anion Gap 6 L BUN 16 Creatinine 0.9 Creat Clearance w eGFR > 60 Random Glucose 104 Calcium 6.8 L* Magnesium 2.4 Total Bilirubin 0.6 AST 21 ALT 24 Alkaline Phosphatase 32 L Total Protein 5.2 L Albumin 2.3 L Active Medications Generic Name Dose Route Start Last Admin Trade Name Freq PRN Reason Stop Dose Admin Acetaminophen 650 mg 08/21/18 16:31 Tylenol - PO Q6H PRN FEVER Albuterol/Ipratropium 1 amp 08/23/18 20:00 08/24/18 07:30 Duoneb - NEB 1 amp RQID [facility] Administration Diphenhydramine HCl 25 mg 08/22/18 20:36 08/23/18 21:39 Benadryl - PO 25 mg HS PRN Administration INSOMNIA Enoxaparin Sodium 40 mg 08/22/18 10:00 08/23/18 10:22 Lovenox - SQ 40 mg DAILY [facility] Administration Vancomycin HCl 1,000 mg in 250 mls @ 166.667 mls/hr 08/22/18 13:00 08/24/18 02:40 Vancomycin (Pre-Docked) IVPB 166.667 mls/hr Q12H [facility] Administration Protocol Ondansetron HCl 4 mg 08/22/18 10:33 08/22/18 20:48 Zofran Injection IVPUSH 4 mg Q4H PRN Administration NAUSEA AND/OR VOMITING Oseltamivir Phosphate 75 mg 08/21/18 22:00 08/23/18 21:39 Tamiflu - PO 08/26/18 21:59 75 mg BID [facility] Administration Topiramate 50 mg 08/22/18 10:00 08/23/18 10:22 Topamax - PO 50 mg DAILY [facility] Administration ASSESSMENT/PLAN:
[2018-08-24] MEDS ORDERED: PT OWN MED DRAWER 7, Y5N ONE ×2 (10:52)
[2018-08-24] MEDS: TOPIRAMATE 25 MG TABLET (FP) PO SCH (11:09)
[2018-08-24] MEDS: ENOXAPARIN NA (PORCINE) 40 MG/0.4 ML DISP.SYRIN SQ SCH (11:09)
[2018-08-24] MEDS: OSELTAMIVIR PHOSPHATE 75 MG CAPSULE PO SCH (11:09)
[2018-08-24 11:14] VITALS: TEMP 98.4
[2018-08-24 13:32] VITALS: BP 133/76; PULSE 77
--- NOTE | 2018-08-24 15:24 | PN ---
Teaching Attending Note Name of Resident: Ирина Mayorga ATTENDING PHYSICIAN STATEMENT I saw and evaluated the patient. I reviewed the resident's note and discussed the case with the resident. I agree with the resident's findings and plan as documented. SUBJECTIVE: OBJECTIVE: Vital Signs Period Temp Pulse Resp BP Sys/Josue Pulse Ox Last 24 Hr 98.1 F-98.6 F 71-82 18-20 115-133/71-80 97 Laboratory Results - last 24 hr 08/24/18 06:30 WBC 4.9 RBC 4.37 Hgb 12.8 Hct 39.3 MCV 90.0 MCH 29.3 MCHC 32.5 RDW 12.8 Plt Count 144 MPV 9.7 Current Medications Generic Name Dose Route Start Last Admin Trade Name Freq PRN Reason Stop Dose Admin Acetaminophen 650 mg 08/21/18 16:31 Tylenol - PO Q6H PRN FEVER Albuterol/Ipratropium 1 amp 08/23/18 20:00 08/24/18 11:14 Duoneb - NEB 1 amp RQID [facility] Administration Diphenhydramine HCl 25 mg 08/22/18 20:36 08/23/18 21:39 Benadryl - PO 25 mg HS PRN Administration INSOMNIA Enoxaparin Sodium 40 mg 08/22/18 10:00 08/24/18 11:09 Lovenox - SQ 40 mg DAILY [facility] Administration Ondansetron HCl 4 mg 08/22/18 10:33 08/22/18 20:48 Zofran Injection IVPUSH 4 mg Q4H PRN Administration NAUSEA AND/OR VOMITING Oseltamivir Phosphate 75 mg 08/21/18 22:00 08/24/18 11:09 Tamiflu - PO 08/26/18 21:59 75 mg BID [facility] Administration Topiramate 50 mg 08/22/18 10:00 08/24/18 11:09 Topamax - PO 50 mg DAILY [facility] Administration ASSESSMENT AND PLAN:
--- NOTE | 2018-08-24 19:59 | DS ---
Physical Exam: SUBJECTIVE: Patient seen and examined. Feels better this am. Has pinkish colored sputum today, better from bright red yesterday. No BM this am. No abdominal pain, but still on clears. OBJECTIVE: Vital Signs Period Temp Pulse Resp BP Sys/Josue Pulse Ox Last 24 Hr 98.1 F-98.6 F 72-82 18-20 115-133/71-80 97-99 Vital Signs Temperature 98.4 F 08/24/18 11:13 Pulse Rate 76 08/24/18 11:13 Respiratory Rate 20 08/24/18 11:13 Blood Pressure 120/78 08/24/18 11:13 O2 Sat by Pulse Oximetry (%) 97 08/23/18 21:00 PHYSICAL EXAM GENERAL: The patient is awake, alert, and fully oriented, in no acute distress. ENT: moist mucous membranes. NECK: full range of motion, supple. LUNGS: Breath sounds equal, b/l basal crackles, no accessory muscle use. HEART: Regular rate and rhythm, S1, S2 ABDOMEN: Soft, nontender, nondistended, normoactive bowel sounds EXTREMITIES: 2+ pulses, warm, well-perfused, no edema. NEUROLOGICAL: Cranial nerves II through XII grossly intact. Normal speech, gait not observed. PSYCH: Normal mood, normal affect. LABS Laboratory Results - last 24 hr 08/23/18 08/23/18 08/24/18 08:46 08:46 06:30 WBC 4.8 4.9 RBC 4.18 4.37 Hgb 13.1 12.8 Hct 37.3 39.3 MCV 89.2 90.0 MCH 31.4 29.3 MCHC 35.2 32.5 RDW 13.3 12.8 Plt Count 123 L D 144 MPV 9.2 9.7 Absolute Neuts (auto) 3.3 Neutrophils % 68.8 D Lymphocytes % 19.6 D Monocytes % 11.4 H Eosinophils % 0.0 Basophils % 0.2 Nucleated RBC % 0 Sodium 141 Potassium 4.2 Chloride 114 H Carbon Dioxide 21 Anion Gap 6 L BUN 16 Creatinine 0.9 Creat Clearance w eGFR > 60 Random Glucose 104 Calcium 6.8 L* Magnesium 2.4 Total Bilirubin 0.6 AST 21 ALT 24 Alkaline Phosphatase 32 L Total Protein 5.2 L Albumin 2.3 L Microbiology 08/21/18 15:45 Blood - Peripheral Venous Blood Culture - Preliminary NO GROWTH OBTAINED AFTER 72 HOURS, INCUBATION TO CONTINUE FOR 2 DAYS. 08/21/18 21:05 Blood - Peripheral Venous Blood Culture - Preliminary NO GROWTH OBTAINED AFTER 48 HOURS, INCUBATION TO CONTINUE FOR 3 DAYS. 08/21/18 17:30 Urine - Urine Clean Catch Urine Culture - Final NO GROWTH OBTAINED Laboratory Tests 08/21/18 08/21/18 15:13 15:52 HIV 1&2 Antibody Screen Negative HIV P24 Antigen Negative Influenza A (Rapid) Positive Influenza B (Rapid) Negative HOSPITAL COURSE: Date of Admission:08/21/18 Date of Discharge: 08/24/18 prehospital course 47 year-old male with a PMH significant for migraines and tissue mitral valve replacement, presesnted to the ED today complaining of fever, nausea, vomiting, diarrhea, cough, and generalized body aches. Pt states his symptoms started last week with a cough then progressed to fever, vomiting, and body aches last Tuesday (08/19/2018). Small episode of watery diarrhea this morning. Unable to tolerate PO; last meal on Tuesday. Cough has been productive of green sputum. Tmax this morning was 104 orally at home. Coworker had similar symptoms. Did not receive his flu shot this year. Hospital course Pt was treated for Influenza A with Tamiflu, to complete 5 days treatment. He was initially started on vanc/zosyn pending blood cultures, after which antibiotics were discontinued. Pt was also neutropenic on presenation, which improved with flu treatment. His mitral valve replacement remained stable and pt continued home topiromate for migraines. Minutes to complete discharge: 40 Discharge Summary Reason For Visit: INFLUENZA DUE TO INFLUENZA VIRUS, TYPE A HUMAN Condition: Improved - Instructions Diet, Activity, Other Instructions: You were admitted for fever, shortness of breath and cough and found to have the flu. You had low levels of your wite blood cells that improved with treatment for the flu. You were treated with antibiotics initally but your cultures for blood and urine were negative for bacteria, so the antibiotic was stopped You were placed on Tamiflu for the flu. Continue to take the Tamiflu twice a day for the next 3 days. We are also sending you home on nebulizers to aid your breathing. Continue your topiramate as prescribed Please follow up with your primary care doctor in one week If you think your symptoms are not getting better, with worsening shortness of breath or chest pain, please return to the emergency room Referrals: Emmanuel Kelly MD [Primary Care Provider] - 1 Week Disposition: HOME - Home Medications Comprehensive Discharge Medication List: Ambulatory Orders Topiramate 50 mg PO ASDIR 08/21/18 Albuterol 2.5/Ipratropium 0.5 [Duoneb -] 1 amp NEB RQID #1 amp 08/24/18 Oseltamivir Phosphate [Tamiflu -] 75 mg PO BID #5 capsule 08/24/18 This patient is new to me today: Yes Date on this admission: 08/24/18 Emergency Visit: Yes ED Registration Date: 08/21/18 Care time: The patient presented to the Emergency Department on the above date and was hospitalized for further evaluation of their emergent condition. Critical Care patient: No - Discharge Referral Referred to [facility] Med P.C.: No
== END 2018-08-24 16:30 | disposition home or self-care (01) | DRG 195 ==
LOC: JER 13:46 → JERBED 17:49 → J4S 22:39
PROVIDERS: ADMIT Internal Medicine; ATTEND Internal Medicine
DX: J10.1 Influenza due to other identified influenza virus with other respiratory manifestations (principal); R50.9 Fever, unspecified; M79.10 Myalgia, unspecified site; G43.909 Migraine, unspecified, not intractable, without status migrainosus; E83.42 Hypomagnesemia; E87.6 Hypokalemia; D70.9 Neutropenia, unspecified; Z95.2 Presence of prosthetic heart valve
CPT/HCPCS: 36415; 71045-TC-FY; 71046-TC-FY; 80053; 81003; 81015; 82330; 82803; 83605; 83735; 85025; 85027; 87040; 87086; 87389; 87804; 93005; 93010; 94010; 94640; 99284-25; J0131; J7030